=== PATIENT | female | born 1960 | race Caucasian/White ===

== ENCOUNTER 2017-01-23 10:45 | Emergency (ER) | payer OTHER ==
--- NOTE | 2017-01-23 11:10 | ED Physician Chart ---
Chief Complaint/HPI - Patient Information Date Seen:: 01/23/17 Time Seen:: 11:09 Chief Complaint:: SHEPHERD History of Present Illness:: pt has a hx of migraine HAs. here for 2 day hx of SHEPHERD..frontal pressure. similar to prior migraines. pos associated nausea. no fever. no rash,. no stiff neck. no neuro changes. pt took norco for her hip pain but no other pain med this am and has had no relief. pain is severe. no hx of recent trauma. pt was able to take her dilantin 400 mg this am and kept it down. had ok head ct 6 ma. this is a 'typical' migraine similar to ones in past. Allergies:: Allergies Allergy/AdvReac Type Severity Reaction Status Date / Time No Known Allergies Allergy Verified 01/23/17 10:58 Vitals:: Vital Signs - 8 hr 01/23/17 10:50 Temp 97.0 F HR 113 RR 18 BP 164/102 O2 Sat % 98 Historian:: Patient Review of Systems - Review of Systems General/Constitutional: No fever, No chills, No weight loss, No weakness, No diaphoresis, No edema, No loss of appetite Skin: No skin lesions, No rash, No bruising Head: Headache, No light-headedness Eyes: No loss of vision, No pain, No diplopia ENT: No earache, No nasal drainage, No sore throat, No tinnitus Neck: No neck pain, No swelling, No thyromegaly, No stiffness, No mass noted Cardio Vascular: No chest pain, No palpitations, No PND, No orthopnea, No edema Pulmonary: No SOB, No cough, No sputum, No wheezing GI: Nausea, No vomiting, No diarrhea, No pain, No melena, No hematochezia, No constipation, No hematemesis G/U: No dysuria, No frequency, No hematuria Musculoskeletal: No bone or joint pain, No back pain, No muscle pain Endocrine: No polyuria, No polydipsia Psychiatric: No prior psych history, No depression, No anxiety, No suicidal ideation Hematopoietic: No bruising, No lymphadenopathy Allergic/Immuno: No urticaria, No angioedema Neurological: No syncope, No focal symptoms, No weakness, No paresthesia, No headache, No seizure, No dizziness, No confusion, No vertigo Past Medical History - Past Medical History Past Medical History: HTN, Seizures, Other (left hip pain) Social History: Other (son drove her to ed today...pt doesnt drive) Surgical History: Hysterectomy Medication: Reviewed (on norco for hip pain) Family Medical History - Family Member Mother History Unknown: Yes Other Medical History: patient denies family medical history Physical Exam - Physical Examination General/Constitutional: Awake, Well-developed, well-nourished, Alert, No distress, GCS 15, Non-toxic appearing, Ambulatory Other Gen/Cons comments:: nontoxic. alert. good nrml neuro exam w nrml str/sens x 4 extr. cn 2-12 wnl. no rash. Head: Atraumatic Eyes: Lids, conjuctiva normal, PERRL, EOMI Skin: Nl inspection, No rash, No skin lesions, No ecchymosis, Well hydrated, No lymphadenopathy ENMT: External ears, nose nl, Nasal exam nl, Lips, teeth, gums nl Neck: Nontender, Full ROM w/o pain, No JVD, No nuchal rigidity, No bruit, No mass, No stridor Other Neck comments:: neck supple Respiratory: Nl effort/Exclusion, Clear to Auscultation, No Wheeze/Rhonchi/Rales Cardio Vascular: RRR, No murmur, gallop, rubs, NL S1 S2 GI: No tenderness/rebounding/guarding, No organomegaly, No hernia, Normal BS's, Nondistended, No mass/bruits, No McBurney tenderness : No CVA tenderness Extremities: No tenderness or effusion, Full ROM, normal strength in all extremities, No edema, Normal digits & nails Neuro/Psych: Alert/oriented, DTR's symmetric, Normal sensory exam, Normal motor strength, Judgement/insight normal, Mood normal, Normal gait, No focal deficits Misc: normal gait, Normal back, No paraspinal tenderness ED Septic Shock - . Is Septic Shock (SBP<90, OR Lactate>4 mmol\L) present?: No - <6hrs of presentation: Vital Signs: Vital Signs - 8 hr 01/23/17 10:50 Temp 97.0 F HR 113 RR 18 BP 164/102 O2 Sat % 98 Reassessment (Disposition) - Reassessment Reassessment:: pt seen again 12;41...still c/o SHEPHERD. says in past dulce maria was able to ctrl her SHEPHERD. no neuro changes. pt to see her pmd tmrw for rechk and stay w family today for neuro exam.. ret if worse.../neuro change etc... Reassessment Condition:: Improved - Diagnosis Diagnosis:: 1 migraine SHEPHERD 2 suboptimallly ctrld HTN - Aftercare/Follow up Instructions Aftercare/Follow-Up Instructions:: Counseled pt regarding lab results/diagnosis & need follow up - Patient Disposition Discharge/Transfer:: Home Condition at Disposition:: Improved ED Discharge Plan - Patient Disposition Admit/Discharge/Transfer: PT DISCHARGED HOME Condition at Disposition: Stable Instructions: Hypertension, [id number], Migraine Headache
[2017-01-23] MEDS ORDERED: Morphine Sulfate 4 mg/mL 1mL Syr ONE (11:47)
[2017-01-23] MEDS ORDERED: HYDROmorphone 1 mg/mL 1mL Syr IM STA (12:39)
[2017-01-23] MEDS ORDERED: HYDROmorphone 1 mg/mL 1mL Syr ONE (12:48)
== END 2017-01-23 13:15 | disposition home or self-care (01) ==
LOC: ER 10:45
DX: G43.909 Migraine, unspecified, not intractable, without status migrainosus (principal); I10 Essential (primary) hypertension; Z90.710 Acquired absence of both cervix and uterus
CPT/HCPCS: 99284; 96372 ×3; Q0162; J1170; J1200; Z7502; Z7610

== ENCOUNTER 2017-02-22 18:29 | Emergency (ER) | payer OTHER ==
[2017-02-22 18:43] VITALS: BP 154/102
[2017-02-22] MEDS ORDERED: Sodium Chloride 0.9% 1,000 ML IV ONE (19:00)
--- NOTE | 2017-02-22 19:07 | ED Physician Chart ---
Chief Complaint/HPI - Patient Information Date Seen:: 02/22/17 Time Seen:: 19:02 Chief Complaint:: headache History of Present Illness:: THIS IS A 57 YO FEMALE WITH A SEIZURE DISORDER Allergies:: Allergies Allergy/AdvReac Type Severity Reaction Status Date / Time No Known Allergies Allergy Verified 01/23/17 10:58 Vitals:: Vital Signs - 8 hr 02/22/17 02/22/17 18:42 18:43 Temp 97.1 F HR 83 RR 17 BP 154/102 154/101 O2 Sat % 98 Historian:: Patient Review:: Nurse's Note Reviewed Review of Systems - Review of Systems General/Constitutional: No fever, No chills, No weight loss, No weakness, No diaphoresis, No edema, No loss of appetite Skin: No skin lesions, No rash, No bruising Head: Headache, No light-headedness Eyes: No loss of vision, No pain, No diplopia ENT: No earache, No nasal drainage, No sore throat, No tinnitus Neck: No neck pain, No swelling, No thyromegaly, No stiffness, No mass noted Cardio Vascular: No chest pain, No palpitations, No PND, No orthopnea, No edema Pulmonary: No SOB, No cough, No sputum, No wheezing GI: Nausea, Vomiting, No diarrhea, No pain, No melena, No hematochezia, No constipation, No hematemesis G/U: No dysuria, No frequency, No hematuria Musculoskeletal: No bone or joint pain, No back pain, No muscle pain Endocrine: No polyuria, No polydipsia Psychiatric: No prior psych history, No depression, No anxiety, No suicidal ideation Hematopoietic: No bruising, No lymphadenopathy Allergic/Immuno: No urticaria, No angioedema Neurological: No syncope, No focal symptoms, No weakness, No paresthesia, No headache, No seizure, No dizziness, No confusion, No vertigo Past Medical History - Past Medical History Obtainable: Yes Past Medical History: Seizures Family History: HTN (MOTHER AND FATHER) Social History: Non Smoker, No Alcohol, No Drug Use, Surgical History: Hysterectomy Psychiatricy History: None Family Medical History - Family Member Mother History Unknown: Yes Living Status: Other Medical History: cva Physical Exam - Physical Examination General/Constitutional: Awake, Well-developed, well-nourished, Alert, No distress, GCS 15, Non-toxic appearing, Ambulatory Head: Atraumatic Eyes: Lids, conjuctiva normal, PERRL, EOMI Skin: Nl inspection, No rash, No skin lesions, No ecchymosis, Well hydrated, No lymphadenopathy ENMT: External ears, nose nl, Nasal exam nl, Lips, teeth, gums nl Neck: Nontender, Full ROM w/o pain, No JVD, No nuchal rigidity, No bruit, No mass, No stridor Respiratory: Nl effort/Exclusion, Clear to Auscultation, No Wheeze/Rhonchi/Rales Cardio Vascular: RRR, No murmur, gallop, rubs, NL S1 S2 GI: No tenderness/rebounding/guarding, No organomegaly, No hernia, Normal BS's, Nondistended, No mass/bruits, No McBurney tenderness : No CVA tenderness Extremities: No tenderness or effusion, Full ROM, normal strength in all extremities, No edema, Normal digits & nails Neuro/Psych: Alert/oriented, DTR's symmetric, Normal sensory exam, Normal motor strength, Judgement/insight normal, Mood normal, Normal gait, No focal deficits Misc: normal gait, Normal back, No paraspinal tenderness Labs/Radiology/EKG Results - Lab Results Results: Abnormal Lab Results 02/22/17 02/22/17 02/22/17 19:04 19:04 19:04 WBC 8.4 RBC 5.10 Hgb 15.8 H D Hct 46.4 H MCV 91.0 MCH 31.0 MCHC Differential 34.0 RDW 12.6 Plt Count 185 MPV 9.3 Neutrophils % 67.3 Lymphocytes % 21.9 Monocytes % 7.9 Eosinophils % 1.9 Basophils % 1.0 Sodium Potassium Chloride Carbon Dioxide Anion Gap BUN Creatinine Est GFR ( Amer) Est GFR (Non-Af Amer) BUN/Creatinine Ratio Glucose Calcium Total Bilirubin AST ALT Alkaline Phosphatase Troponin I Total Protein Albumin Globulin Albumin/Globulin Ratio Triglycerides 120 Cholesterol 219 H LDL Cholesterol Direct 156 HDL Cholesterol 52 TSH Urine Source Urine Color Urine Clarity Urine pH Ur Specific [place] Urine Protein Urine Glucose (UA) Urine Ketones Urine Blood Urine Nitrate Urine Bilirubin Urine Urobilinogen Ur Leukocyte Esterase Urine RBC Urine WBC Ur Epithelial Cells Urine Bacteria Phenytoin 5.6 L 02/22/17 02/22/1702/22/17 19:04 19:04 19:04 WBC RBC Hgb Hct MCV MCH MCHC Differential RDW Plt Count MPV Neutrophils % Lymphocytes % Monocytes % Eosinophils % Basophils % Sodium 136 Potassium 3.5 Chloride 105 Carbon Dioxide 23.8 Anion Gap 10.7 BUN 14 Creatinine 0.7 Est GFR ( Amer) > 60.0 Est GFR (Non-Af Amer) > 60.0 BUN/Creatinine Ratio 20.0 Glucose 93 Calcium 10.5 H Total Bilirubin 1.0 AST 15 ALT 15 Alkaline Phosphatase 70 Troponin I < 0.01 L Total Protein 8.6 H Albumin 5.1 Globulin 3.5 Albumin/Globulin Ratio 1.5 Triglycerides Cholesterol LDL Cholesterol Direct HDL Cholesterol TSH 1.22 Urine Source Urine Color Urine Clarity Urine pH Ur Specific [place] Urine Protein Urine Glucose (UA) Urine Ketones Urine Blood Urine Nitrate Urine Bilirubin Urine Urobilinogen Ur Leukocyte Esterase Urine RBC Urine WBC Ur Epithelial Cells Urine Bacteria Phenytoin 02/22/17 19:25 WBC RBC Hgb Hct MCV MCH MCHC Differential RDW Plt Count MPV Neutrophils % Lymphocytes % Monocytes % Eosinophils % Basophils % Sodium Potassium Chloride Carbon Dioxide Anion Gap BUN Creatinine Est GFR ( Amer) Est GFR (Non-Af Amer) BUN/Creatinine Ratio Glucose Calcium Total Bilirubin AST ALT Alkaline Phosphatase Troponin I Total Protein Albumin Globulin Albumin/Globulin Ratio Triglycerides Cholesterol LDL Cholesterol Direct HDL Cholesterol TSH Urine Source CLEAN C Urine Color YELLOW Urine Clarity HAZY Urine pH 6.5 Ur Specific [place] 1.020 Urine Protein TRACE Urine Glucose (UA) NEGATIVE Urine Ketones NEGATIVE Urine Blood TRACE Urine Nitrate NEGATIVE Urine Bilirubin NEGATIVE Urine Urobilinogen 1.0 Ur Leukocyte Esterase MODERATE H Urine RBC 0-2 Urine WBC 6-10 H Ur Epithelial Cells FEW Urine Bacteria NONE SEEN Phenytoin - Radiology Results Results: ct scan of the brain = nad found ED Septic Shock - . Is Septic Shock (SBP<90, OR Lactate>4 mmol\L) present?: No - <6hrs of presentation: Vital Signs: Vital Signs - 8 hr 02/22/17 02/22/17 18:42 18:43 Temp 97.1 F HR 83 RR 17 BP 154/102 154/101 O2 Sat % 98 Reassessment (Disposition) - Reassessment Reassessment Condition:: Improved - Diagnosis Diagnosis:: HEADACHE urinary tract infection - Aftercare/Follow up Instructions Aftercare/Follow-Up Instructions:: Counseled pt regarding lab results/diagnosis & need follow up, Refer to Discharge Instructions, Counseled pt & family regarding lab results/diagnosis & need follow up - Patient Disposition Discharge/Transfer:: Home Condition at Disposition:: Improved ED Discharge Plan - Patient Disposition Admit/Discharge/Transfer: PT DISCHARGED HOME Condition at Disposition: Improved
[2017-02-22 19:18] LABS: % EOSINOPHILS 1.9 % (0.0-5.0); % LYMPHOCYTES 21.9 % (20.0-50.0); % MONOCYTES 7.9 % (2.0-10.0); % NEUTROPHILS 67.3 % (40.0-80.0); HEMATOCRIT 46.4 % (35.0-45.0); MEAN PLATELET VOLUME 9.3 fl; NEUTROPHILE ABSOLUTE 5.6 Th/cmm (1.8-8.0); PLATELET COUNT 185 Th/cmm (150-400); RED CELL DISTRIBUTION WIDTH 12.6 % (11.5-20.0); WHITE BLOOD COUNT 8.4 Th/cmm (4.8-10.8)
[2017-02-22 19:30] LABS: HEMOGLOBIN 15.8 gm/dL (11.7-15.5)
[2017-02-22 19:38] LABS: CHOLESTEROL 219 mg/dL (<200); TRIGLYCERIDES 120 mg/dL (<150)
[2017-02-22 20:06] LABS: ALB/GLOB RATIO 1.5 (1.0-1.8); ALKALINE PHOSPHATASE 70 U/L (34-104); ANION GAP 10.7 (7.0-16.0); BUN - UREA NITROGEN 14 mg/dL (7-25); CALCIUM SERUM 10.5 mg/dL (8.6-10.3); CARBON DIOXIDE 23.8 mEq/L (21.0-31.0); CHLORIDE 105 mEq/L (98-107); CREATININE - SERUM 0.7 mg/dL (0.6-1.2); GLUCOSE 93 mg/dL (70-105); POTASSIUM SERUM 3.5 mEq/L (3.5-5.1); SGOT 15 U/L (13-39); SGPT/ALT 15 U/L (7-52); SODIUM SERUM 136 mEq/L (136-145)
[2017-02-22 20:08] LABS: URINE BILIRUBIN NEGATIVE (NEGATIVE); URINE BLOOD TRACE (NEGATIVE); URINE COLOR YELLOW; URINE GLUCOSE (UA) NEGATIVE (NEGATIVE); URINE KETONE NEGATIVE (NEGATIVE); URINE PH 6.5; URINE PROTEIN TRACE mg/dL (NEGATIVE)
[2017-02-22 20:09] LABS: URINE RBC 0-2 /hpf (0-5)
[2017-02-22 20:10] LABS: URINE BACTERIA NONE SEEN /hpf (NONE SEEN); URINE EPITHELIAL CELLS FEW /lpf (FEW)
[2017-02-22 20:26] LABS: INR 1.1 (0.5-1.4); PROTHROMBIN TIME (TEST) 11.5 SECONDS (9.5-11.5)
[2017-02-22] MEDS ORDERED: SODIUM CHLORIDE 0.9% IV ONE (20:42)
[2017-02-22] MEDS ORDERED: PHENYTOIN IV ONE (20:42)
[2017-02-22] MEDS ORDERED: Phenytoin 50 mg/mL 5 mL Vial IV ONE (20:52)
[2017-02-22] MEDS ORDERED: HYDROmorphone 1 mg/mL 1mL Syr IVP STA (21:30)
[2017-02-22] MEDS ORDERED: HYDROmorphone 1 mg/mL 1mL Syr ONE (21:56)
--- NOTE | 2017-02-23 10:10 | Diagnostic Imaging Report ---
INDICATION: Altered level of consciousness. Technique: Serial axial images were performed from the skull base to the vertex using 5 mm slice thickness and interval. CTDI is 34mGy. [id number] FINDINGS: Ventricular size is normal. No areas of hemorrhage or edema in the brain or brainstem. No extra axial fluid collections. No bony abnormalities. IMPRESSION: No acute intracranial pathology.
== END 2017-02-22 22:25 | disposition home or self-care (01) ==
LOC: ER 18:29
DX: R51 Headache (principal); G40.909 Epilepsy, unspecified, not intractable, without status epilepticus; N39.0 Urinary tract infection, site not specified
CPT/HCPCS: 99285; 96365; 96361; 96375; 70450; 84484; 36415; 84443; 86592; 85025; 85610; 85730; 81001; 80185; 80053; 80061; J1885; J1165; J2405; J0696; J2930; J1170; J7030

== ENCOUNTER 2017-02-23 11:22 | Emergency (ER) | payer OTHER ==
[2017-02-23 11:34] VITALS: BP 141/98
--- NOTE | 2017-02-23 11:57 | ED Physician Chart ---
Chief Complaint/HPI - Patient Information Date Seen:: 02/23/17 Time Seen:: 11:55 Chief Complaint:: MIGRAINE HEADACHE X 4 DAYS History of Present Illness:: The patient states she had gradual onset of a typical migraine headache over the right side of her face and scalp 4 days ago. She rates the severity of the pain as 8/10 in the pain is made worse by bright lights and noise. The patient has some relief last evening when in the emergency department after receiving pain and anxiety medication. The patient has had migraine headaches since she was in her early 20s and the current headache is typical of prior episodes. The headache is accompanied by nausea with one episode of vomiting since leaving the emergency department last night. She denies any focal weakness or loss of sensation. In addition to migraine headaches the patient has a seizure disorder which is well controlled with Dilantin. Allergies:: Allergies Allergy/AdvReac Type Severity Reaction Status Date / Time No Known Allergies Allergy Verified 01/23/17 10:58 Vitals:: Vital Signs - 8 hr 02/23/17 11:33 Temp 97.7 F HR 83 RR 16 BP 141/98 Historian:: Patient (the nursing triage sheet was reviewed and showed a blood pressure of 141/98. Other vital signs within normal parameters. Chief complaint returns for headache that was seen last night.) Review of Systems - Review of Systems General/Constitutional: No fever, No chills, No weakness, No diaphoresis, Loss of appetite Skin: No skin lesions, No rash, No bruising Head: Headache, No light-headedness Eyes: No diplopia, Other (patient has blurring in the right eye which is typical for her migraine headaches.) ENT: No earache, No sore throat, No tinnitus Neck: No neck pain, No stiffness, No mass noted Cardio Vascular: No chest pain Pulmonary: No SOB, No cough, No sputum GI: Nausea, Vomiting, No diarrhea, No pain, No hematemesis G/U: No dysuria, No frequency, No hematuria [employer]: No vaginal discharge Musculoskeletal: Bone or joint pain (patient has chronic pain in her left hip and is awaiting surgical procedure.), No muscle pain Psychiatric: No depression, No suicidal ideation Hematopoietic: No bruising, No lymphadenopathy Allergic/Immuno: No urticaria, No angioedema Neurological: No syncope, No focal symptoms, No weakness, No paresthesia, Headache, Seizure, No dizziness, No confusion, No vertigo Past Medical History - Past Medical History Past Medical History: HTN, Seizures, Arthritis, Other (Arthritis of the left hip.) Social History: Non Smoker, No Alcohol, No Drug Use, Employment:: Currently unemployed and unable to drive due to her seizure disorder. Family Medical History - Family Member Mother History Unknown: Yes Living Status: Physical Exam - Physical Examination General/Constitutional: Well-developed, well-nourished, Alert, Non-toxic appearing, Ambulatory Other Gen/Cons comments:: Appears to be in moderate distress from her complaint of migraine headache. Head: Atraumatic Other Head comments:: No recent history of head trauma and no visible or palpable evidence of head injury. Eyes: Lids, conjuctiva normal, PERRL, EOMI Other Eyes comments:: No nystagmus. Skin: Nl inspection, No rash, No skin lesions, No ecchymosis, Well hydrated, No lymphadenopathy ENMT: External ears, nose nl, Nasal exam nl, Lips, teeth, gums nl, Oropharynx nl , Tonsils nl Other ENMT comments:: And the tongue protrudes in the midline. Neck: Nontender, Full ROM w/o pain, No JVD, No nuchal rigidity, No mass, No stridor Respiratory: Nl effort/Exclusion, Clear to Auscultation, No Wheeze/Rhonchi/Rales Cardio Vascular: RRR, No murmur, gallop, rubs, NL S1 S2 Other Cardio Vascular comments:: Distal pulses are adequate in all 4 extremities. GI: No tenderness/rebounding/guarding, No organomegaly, No hernia, Nondistended , No mass/bruits, No McBurney tenderness Other GI comments:: Rectal examination deferred at my discretion. : No CVA tenderness (the patient had tenderness with range of motion of the left hip.) Extremities: No tenderness or effusion, normal strength in all extremities, No edema Other Extremities comments:: The patient had pain with attempts to lift the left lower extremity off the gurney. The pain was in the region of her complained of chronic hip pain. Neuro/Psych: Alert/oriented, DTR's symmetric, Normal sensory exam, Normal motor strength, Judgement/insight normal, Mood normal, Normal gait, No focal deficits Other Neuro/Psych comments:: Cranial nerves II through XI are grossly intact. Patient has normal finger- nose testing in both upper extremities. Labs/Radiology/EKG Results - Lab Results Results: I reviewed the laboratory results from last evening the patient had no leukocytosis, a mildly elevated hemoglobin level and normal platelets. Electrolytes were all within the normal parameters and her renal function was normal. Normal LFTs. Urinalysis was negative for presence of bacteria but did show 5-[address] scan of the head was read by radiology as showing no acute intracranial pathology. No intracranial hemorrhage present. Assessment - Assessment General Assessment: CASE SUMMARY: this 57-year-old female returns to the emergency department after having been seen last evening. She presented complaining of a migraine headache which was very similar to previous headaches she has had over the past 30 years. The Onset of the headache was gradual and the severity was rated as a 10/8. The headache was worse with bright light and loud noises. On physical examination the patient was awake and alert and in moderate distress. There was no evidence of any recent head trauma. The neurologic examination was intact. Her neck was supple and without tenderness. Should had diagnostic studies performed last evening which were essentially unremarkable. This included a CT scan of the head. The patient's symptoms were addressed with iv normal saline, Zofran and dilaudid. She had good relief of symptoms and was discharged in stable condition. She was advised to follow up with her pain management doctor this coming week. She was further advised to return to the emergency department if she had onset of any focal weakness or numbness. MDM DDX for SEVERE HEADACHE: NOT SAH Based on her history and examination. NOT Acute meningitis based on her history, physical examination and laboratory studies from the prior evening. NOT Temporal arteritis based on the patient's history and physical examination. NOT Traumatic head injury based on the patient's history and physical exam. Also the patient had a negative CT scan of the head last evening. ED Septic Shock - . Is Septic Shock (SBP<90, OR Lactate>4 mmol\L) present?: No - <6hrs of presentation: Vital Signs: Vital Signs - 8 hr 02/23/17 11:33 Temp 97.7 F HR 83 RR 16 BP 141/98 Reassessment (Disposition) - Reassessment Reassessment Condition:: Improved - Diagnosis Diagnosis:: ACUTE MIGRAINE HEADACHE. HISTORY of SEIZURE DISORDER DISCHARGE INSTRUCTIONS: 1) use the Zofran as prescribed for any further nausea or vomiting. 2) follow up with her pain management physician this week for reevaluation of your medications and treatment. 3) return to the emergency department if her symptoms significantly worsen or for onset of any new neurologic deficit. ED Discharge Plan - Patient Disposition Admit/Discharge/Transfer: PT DISCHARGED HOME Prescriptions: Ondansetron HCl [Zofran] 8 mg PO Q4HR PRN #0 tablet PRN Reason: Nausea / Vomiting Instructions: Migraine Headache, [id number], Nausea, Adult, [id number]
[2017-02-23] MEDS ORDERED: Sodium Chloride 0.9% 1,000 ML IV ONE (12:18)
[2017-02-23] MEDS ORDERED: HYDROmorphone 1 mg/mL 1mL Syr IVP STA ×2 (12:20→13:37)
[2017-02-23] MEDS ORDERED: HYDROmorphone 1 mg/mL 1mL Syr ONE ×2 (12:33→13:38)
== END 2017-02-23 14:37 | disposition home or self-care (01) ==
LOC: ER 11:22
DX: G43.909 Migraine, unspecified, not intractable, without status migrainosus (principal); G40.909 Epilepsy, unspecified, not intractable, without status epilepticus; I10 Essential (primary) hypertension
CPT/HCPCS: 99284; 96374; 96375; 96376; J2405; J1170; J7030; Z7502

== ENCOUNTER 2017-03-09 09:30 | Emergency (ER) | payer OTHER ==
--- NOTE | 2017-03-09 09:33 | ED Physician Chart ---
Chief Complaint/HPI - Patient Information Date Seen:: 03/09/17 Time Seen:: 09:31 Chief Complaint:: headache History of Present Illness:: 57-year-old female history of migraine headaches, complains of acute, constant, severe, nonradiating, aching, migraine headache since yesterday. Has associated nausea and photophobia. Denies chest pain, palpitations, abdominal pain, dysuria, acute vision changes, numbness, tingling. Allergies:: Allergies Allergy/AdvReac Type Severity Reaction Status Date / Time No Known Allergies Allergy Verified 01/23/17 10:58 Historian:: Patient Review of Systems - Review of Systems Other: Complete system review otherwise unremarkable except as noted in history of present illness. Past Medical History - Past Medical History Past Medical History: Seizures, Other (migraines, chronic pain syndrome) Family History: None Social History: Smoker, No Alcohol, No Drug Use Surgical History: None Psychiatricy History: None Medication: Reviewed Family Medical History - Family Member Mother History Unknown: Yes Living Status: Physical Exam - Physical Examination Other:: INITIAL VITAL SIGNS: Reviewed by me GENERAL: Alert and interactive. No acute distress HEAD: Head is normocephalic and atraumatic EYES: EOMI. PERRL. No scleral icterus. No conjunctival injection ENT: Moist mucous membranes. NECK: Supple. No masses. Full range of motion RESPIRATORY: No tachypnea. Clear breath sounds bilaterally. No wheezing, rales, or rhonchi CV: Regular rate and rhythm. No murmurs, rubs, or gallops ABDOMEN: Soft, non-distended, non-tender. No guarding. No rebound. No masses. EXTREMITIES: No deformity. No cyanosis. No edema. SKIN: Warm and dry. No obvious rashes. NEUROLOGIC: Alert and oriented. Face is symmetric. Speech is normal. Moves all extremities equally. Motor and sensory distally intact. Labs/Radiology/EKG Results - Lab Results Results: Lab Results 03/09/17 03/09/17 Range/Units 09:49 09:49 WBC 5.2 D (4.8-10.8) Th/cmm RBC 4.56 (3.80-5.10) Mil/cmm Hgb 14.1 (11.7-15.5) gm/dL Hct 41.1 D (35.0-45.0) % MCV 90.1 (81-100) fl MCH 30.9 (27.0-31.0) pg MCHC Differential 34.3 (28.0-36.0) pg RDW 12.9 (11.5-20.0) % Plt Count 156 (150-400) Th/cmm MPV 8.9 fl Neutrophils % 69.2 (40.0-80.0) % Lymphocytes % 19.8 L (20.0-50.0) % Monocytes % 7.7 (2.0-10.0) % Eosinophils % 2.7 (0.0-5.0) % Basophils % 0.6 (0.0-2.0) % Sodium 136 (136-145) mEq/L Potassium 3.6 (3.5-5.1) mEq/L Chloride 108 H (98-107) mEq/L Carbon Dioxide 24.9 (21.0-31.0) mEq/L Anion Gap 6.7 L (7.0-16.0) BUN 7 (7-25) mg/dL Creatinine 0.6 (0.6-1.2) mg/dL Est GFR ( Amer) > 60.0 (>90) ml/min Est GFR (Non-Af Amer) > 60.0 ml/min BUN/Creatinine Ratio 11.7 Glucose 123 H (70-105) mg/dL Calcium 9.4 (8.6-10.3) mg/dL Total Bilirubin 0.4 (0.3-1.0) mg/dL AST 15 (13-39) U/L ALT 13 (7-52) U/L Alkaline Phosphatase 54 (34-104) U/L Total Protein 7.0 (6.0-8.3) gm/dL Albumin 4.2 (3.7-5.3) gm/dL Globulin 2.8 gm/dL Albumin/Globulin Ratio 1.5 (1.0-1.8) Phenytoin 5.0 L (10.0-20.0) ug/ml Assessment - Assessment General Assessment: SMOKING CESSATION COUNSELING: I spent greater than 3 minutes at the bedside with the patient discussing the benefits of smoking cessation, including decreased risk of heart disease, lung cancer, and emphysema. We also discussed strategies for smoking cessation, including pharmaceutical options. The patient was also encouraged to follow up with the primary care physician for outpatient follow-up. ED Septic Shock - . Is Septic Shock (SBP<90, OR Lactate>4 mmol\L) present?: No Reassessment (Disposition) - Reassessment Reassessment:: Phenytoin levels are low at 5. We will replace with IV phenytoin 200 mg. Other lab results essentially unremarkable. Received IV Toradol, Compazine, IV fluids. Migraine did improve. Reviewed [facility]ES report. Patient receiving large amounts of or morphine, oxycodone, lorazepam and zolpidem. This patient is high risk for opioid abuse and overdose. Recommended patient follow-up with pain management primary care within 1-2 days. Prescribed Zofran for nausea vomiting at home. Patient understands and agrees with the plan. Blood pressure was noted to be elevated over 120/80. There were no signs of hypertension. Discussed the findings with the patient and recommended that the patient follow up with the primary care physician regarding the elevated blood pressure. Reassessment Condition:: Improved - Diagnosis Diagnosis:: Acute nausea vomiting due to acute migraine headache, intractable, without photophobia - Aftercare/Follow up Instructions Aftercare/Follow-Up Instructions:: Counseled pt regarding lab results/diagnosis & need follow up, Refer to Discharge Instructions Medication Prescribed:: Zofran - Patient Disposition Discharge/Transfer:: Home Time:: 10:59 Condition at Disposition:: Improved ED Discharge Plan - Patient Disposition Admit/Discharge/Transfer: PT DISCHARGED HOME Condition at Disposition: Improved Instructions: Migraine Headache
[2017-03-09] MEDS ORDERED: Prochlorperazine 5 mg/mL 2mL Vial IVP STA (09:35)
[2017-03-09] MEDS ORDERED: Dexamethasone Sodium Phos 4 mg/mL Vial IVP STA (09:35)
[2017-03-09 09:57] LABS: % BASOPHILS 0.6 % (0.0-2.0); % EOSINOPHILS 2.7 % (0.0-5.0); % LYMPHOCYTES 19.8 % (20.0-50.0); % MONOCYTES 7.7 % (2.0-10.0); % NEUTROPHILS 69.2 % (40.0-80.0); HEMOGLOBIN 14.1 gm/dL (11.7-15.5); MEAN CELL VOLUME 90.1 fl (81-100); MEAN CORPUSCULAR HEMOGLOBIN 30.9 pg (27.0-31.0); MEAN CORPUSCULAR HGB CONC 34.3 pg (28.0-36.0); MEAN PLATELET VOLUME 8.9 fl; NEUTROPHILE ABSOLUTE 3.7 Th/cmm (1.8-8.0); PLATELET COUNT 156 Th/cmm (150-400); RED BLOOD COUNT 4.56 Mil/cmm (3.80-5.10); RED CELL DISTRIBUTION WIDTH 12.9 % (11.5-20.0)
[2017-03-09] MEDS ORDERED: Dexamethasone Sodium Phos 10 mg/mL PF Vial ONE (10:01)
[2017-03-09] MEDS ORDERED: Prochlorperazine 5 mg/mL 2mL Vial ONE (10:01)
[2017-03-09] MEDS ORDERED: Sodium Chloride 0.9% 1,000 ML IV ONE (10:07)
[2017-03-09 10:11] LABS: HEMATOCRIT 41.1 % (35.0-45.0); WHITE BLOOD COUNT 5.2 Th/cmm (4.8-10.8)
[2017-03-09 10:18] LABS: ALB/GLOB RATIO 1.5 (1.0-1.8); ALKALINE PHOSPHATASE 54 U/L (34-104); ANION GAP 6.7 (7.0-16.0); BILIRUBIN,TOTAL 0.4 mg/dL (0.3-1.0); BUN - UREA NITROGEN 7 mg/dL (7-25); BUN/CREATININE RATIO 11.7; CALCIUM SERUM 9.4 mg/dL (8.6-10.3); CARBON DIOXIDE 24.9 mEq/L (21.0-31.0); CHLORIDE 108 mEq/L (98-107); CREATININE - SERUM 0.6 mg/dL (0.6-1.2); GLUCOSE 123 mg/dL (70-105); POTASSIUM SERUM 3.6 mEq/L (3.5-5.1); SGOT 15 U/L (13-39); SGPT/ALT 13 U/L (7-52); SODIUM SERUM 136 mEq/L (136-145)
[2017-03-09 10:19] VITALS: BP 158/74
[2017-03-09] MEDS ORDERED: Phenytoin 200 MG in Sodium Chloride 0.9% 46 ML IV ONE (10:43)
== END 2017-03-09 11:34 | disposition home or self-care (01) ==
LOC: ER 09:30
DX: G43.919 Migraine, unspecified, intractable, without status migrainosus (principal); R11.2 Nausea with vomiting, unspecified; G89.4 Chronic pain syndrome; F17.200 Nicotine dependence, unspecified, uncomplicated
CPT/HCPCS: 99284; 96374; 96375; 99406; 36415; 85025; 80185; 80053; J1885; J1165; J0780; J7030; Z7502

== ENCOUNTER 2017-05-07 11:41 | Emergency (ER) | payer OTHER ==
[2017-05-07] MEDS ORDERED: Prochlorperazine 5 mg/mL 2mL Vial ONE (12:05)
[2017-05-07] MEDS ORDERED: Morphine Sulfate 2 mg/mL 1mL Syr ONE (12:06)
[2017-05-07] MEDS: Prochlorperazine 5 mg/mL 2mL Vial IM STA (12:08)
--- NOTE | 2017-05-07 12:15 | ED Physician Chart ---
Chief Complaint/HPI - Patient Information Date Seen:: 05/07/17 Time Seen:: 11:45 Chief Complaint:: vomiting History of Present Illness:: onset x one day of N/V x 3; pt has intermittent right sided typical throbbing migraine H/As x 5 days; no C/P, SOB, Abd. 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; pt is tolerating fluids well Allergies:: Allergies Allergy/AdvReac Type Severity Reaction Status Date / Time No Known Allergies Allergy Verified 05/07/17 11:56 Vitals:: Vital Signs - 8 hr 05/07/17 11:45 Temp 97.9 F HR 127 RR 20 BP 148/107 O2 Sat % 99 Historian:: Patient Review:: Nurse's Note Reviewed Review of Systems - Review of Systems General/Constitutional: Fever, Chills, No weight loss, Weakness, No diaphoresis , No edema, No loss of appetite Skin: No skin lesions, No rash, No bruising Head: Headache, Light headed Eyes: No loss of vision, No pain, No diplopia ENT: No earache, Nasal drainage, No sore throat, No tinnitus Neck: No neck pain, No swelling, No thyromegaly, No stiffness, No mass noted Cardio Vascular: No chest pain, No palpitations, No PND, No orthopnea, No edema Pulmonary: No SOB, Cough, No sputum, No wheezing GI: Nausea, Vomiting, Diarrhea, No pain, No melena, No hematochezia, No constipation, No hematemesis G/U: No dysuria, No frequency, No hematuria 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: No vaginal discharge, No abnormal vaginal bleed, No contraction Musculoskeletal: No bone or joint pain, No back pain, No muscle pain Endocrine: No polyuria, No polydipsia Psychiatric: No prior psych history, No depression, No anxiety, No suicidal ideation Hematopoietic: No bruising, No lymphadenopathy Allergic/Immuno: No urticaria, No angioedema Neurological: No syncope, No focal symptoms, No weakness, No paresthesia, No headache, Seizure, No dizziness, No confusion, No vertigo Past Medical History - Past Medical History Past Medical History: HTN, Seizures, Other (Migraine Headaches) Family History: HTN Social History: Non Smoker, No Alcohol, No Drug Use, Single Surgical History: Hysterectomy Psychiatricy History: None Medication: Reviewed Family Medical History - Family Member Mother History Unknown: Yes Living Status: Hx Family Cancer: No Hx Family Coronary Artery Disease: No Hx Family Hypertension: No Hx Family Diabetes: No Hx Family Seizures: No Hx Family Dementia: No Hx Family AIDS: No Hx Family HIV: No Hx Family COPD: No Hx Family Psychiatric Problems: No Physical Exam - Physical Examination General/Constitutional: Awake, Well-developed, well-nourished, Alert, No distress, GCS 15, Non-toxic appearing, Ambulatory Head: Atraumatic Eyes: Lids, conjuctiva normal, PERRL, EOMI Skin: Nl inspection, No rash, No skin lesions, No ecchymosis, Well hydrated, No lymphadenopathy ENMT: External ears, nose nl, Nasal exam nl, Lips, teeth, gums nl Neck: Nontender, Full ROM w/o pain, No JVD, No nuchal rigidity, No bruit, No mass, No stridor Respiratory: Nl effort/Exclusion, Clear to Auscultation, No Wheeze/Rhonchi/Rales Cardio Vascular: RRR, No murmur, gallop, rubs, NL S1 S2 GI: No tenderness/rebounding/guarding, No organomegaly, No hernia, Normal BS's, Nondistended, No mass/bruits, No McBurney tenderness : No CVA tenderness Extremities: No tenderness or effusion, Full ROM, normal strength in all extremities, No edema, Normal digits & nails Neuro/Psych: Alert/oriented, DTR's symmetric, Normal sensory exam, Normal motor strength, Judgement/insight normal, Mood normal, Normal gait, No focal deficits Misc: normal gait, Normal back, No paraspinal tenderness ED Septic Shock - . Is Septic Shock (SBP<90, OR Lactate>4 mmol\L) present?: No - <6hrs of presentation: Vital Signs: Vital Signs - 8 hr 05/07/17 11:45 Temp 97.9 F HR 127 RR 20 BP 148/107 O2 Sat % 99 Reassessment (Disposition) - Reassessment Reassessment Condition:: Improved - Diagnosis Diagnosis:: Vascular Cephalgia, Hypertension; Vomiting, Migraine Headaches - Aftercare/Follow up Instructions Aftercare/Follow-Up Instructions:: Counseled pt regarding lab results/diagnosis & need follow up, Refer to Discharge Instructions, Counseled pt & family regarding lab results/diagnosis & need follow up - Patient Disposition Discharge/Transfer:: Home Condition at Disposition:: Stable, Improved (RTER prn if existing s/s reoccur and/or get worse and/or any other new s/s occur; Have Blood Pressure rechecked in one day; ACIs given for all above Dx; Refer to Neurologist/Mat Puncher ADRIANA; F/ U with PMD in one day or prn; RTER prn if concerned)
== END 2017-05-07 13:00 | disposition home or self-care (01) ==
LOC: ER 11:41
DX: G44.1 Vascular headache, not elsewhere classified (principal); G43.909 Migraine, unspecified, not intractable, without status migrainosus; I10 Essential (primary) hypertension; R11.10 Vomiting, unspecified
CPT/HCPCS: 99284; 96372 ×2; J2270; J0780; Z7502